=== PATIENT | male | born 1985 | race Caucasian/White ===

== ENCOUNTER 2018-10-14 01:20 | Emergency (ER) | payer SELFPAY ==
[~2018-10-14] VITALS: Ht 177.8 cm; Wt 86.2 kg
--- NOTE | 2018-10-14 01:20 | NUR ---
PT BIBA BLS. TAKEN TO BED 4. [place] [employer] AT BEDSIDE
[2018-10-14 01:23] VITALS: BP 186/153
[2018-10-14] MEDS ORDERED: ONDANSETRON 4 MG/2 ML VIAL IVP ONE (01:25)
[2018-10-14] MEDS ORDERED: NACL 0.9% 1,000 ML IV ONE ×2 (01:25→02:30)
--- NOTE | 2018-10-14 01:25 | NUR ---
PT BIBA C/O CHEST PAIN. PT WAS IN THE PROCESS OF BEING DETAINED BY [facility] WHEN HE HAD SUDDEN ONSET OF CHEST PAIN. PT PRESENTS TO THE ED, NON-VERBAL. PT POINTS TO CHEST WHEN ASKED WHERE HIS PAIN IS LOCATED, PT POINTS TO LEFT MEDIAL CHEST AREA. PT IS UNCOOPERATIVE. PT IS MOANING W/ FACIAL GRIMACE. PT IN GOWN, IN BED; BED IN LOWER LOCKED POSITION. ER AWARE OF PT STATUS. WILL CONTINUE TO MONITOR. PMH: CASEY RX: CASEY Addendum: 10/14/18 at 0208 by [email or web address] PT BIBA C/O CHEST PAIN. PT WAS IN THE PROCESS OF BEING DETAINED BY [facility] WHEN HE HAD SUDDEN ONSET OF CHEST PAIN. PT PRESENTS TO THE ED, NON-VERBAL. PT POINTS TO CHEST WHEN ASKED WHERE HIS PAIN IS LOCATED, PT POINTS TO LEFT MEDIAL CHEST AREA. PT IS UNCOOPERATIVE. PT IS MOANING W/ FACIAL GRIMACE. PT PLACED ON 2L NASAL CANNULA. 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 PT IN GOWN, IN BED; BED IN LOWER LOCKED POSITION. RONEN ALEXANDER AWARE OF PT STATUS. WILL CONTINUE TO MONITOR. PMH: CASEY RX: CASEY Addendum: 10/14/18 at 0211 by [email or web address] PT BIBA C/O CHEST PAIN. PT WAS IN THE PROCESS OF BEING DETAINED BY [facility] WHEN HE HAD SUDDEN ONSET OF CHEST PAIN. PT PRESENTS TO THE ED, NON-VERBAL. PT POINTS TO CHEST WHEN ASKED WHERE HIS PAIN IS LOCATED, PT POINTS TO LEFT MEDIAL CHEST AREA. PT IS UNCOOPERATIVE. PT IS MOANING W/ FACIAL GRIMACE. PT PLACED ON 2L NASAL CANNULA. PT PLACED ON BEDSIDE ASSOCIATE ARTISTIC DIRECTOR. SUCTION EQUIPMENT ON AT BEDSIDE. PT IN GOWN, IN BED; BED IN LOWER LOCKED POSITION. ER MD AWARE OF PT STATUS. WILL CONTINUE TO MONITOR. PMH: DENIES RX: DENIES
--- NOTE | 2018-10-14 01:30 | NUR ---
IV START: R AC 18G, FLUSHED WELL W/O RESISTANCE. NO REDNESS OR SWELLING NOTED TO SIGHT. TRANSPARENT DRESSING APPLIED. PT TOLERATED WELL.
--- NOTE | 2018-10-14 01:32 | NUR ---
FIRST EKG ATTEMPTED, PT RESISTED DID NOT COOPERATE WHEN ASKED TO LIE STILL. ORDERED ANOTHER ATTEMPT AFTER PT CALMED DOWN
[2018-10-14 01:36] LABS: BASOPHILS % (AUTO) 0.3 % (0.0-2.0); EOSINOPHILS # (AUTO) 0.2 K/uL (0-0.4); EOSINOPHILS % (AUTO) 1.1 % (0.0-4.0); HEMATOCRIT 44.7 % (36-52); HEMOGLOBIN 15.2 g/dL (12.0-18.0); LYMPHOCYTES # (AUTO) 4.2 K/uL (2.0-11.5); LYMPHOCYTES % (AUTO) 24.9 % (20.5-51.1); MEAN CORPUSCULAR HEMOGLOBIN 30 pg (27-31); MEAN CORPUSCULAR HGB CONC 34 g/dL (33-37); MEAN CORPUSCULAR VOLUME 88.9 fL (80-94); MONOCYTES # (AUTO) 1.6 K/uL (0.8-1.0); MONOCYTES % (AUTO) 9.4 % (1.7-9.3); NEUTROPHILS # (AUTO) 10.8 K/uL (1.8-7.7); NEUTROPHILS % (AUTO) 64.3 % (42.2-75.2); PLATELET COUNT (AUTO) 417 K/uL (140-450); RED BLOOD CELL COUNT(AUTO) 5.03 MIL/uL (4.20-6.10); RED CELL DISTRIBUTION WIDTH 13.9 % (11.6-13.7); WHITE BLOOD COUNT (AUTO) 16.8 K/uL (4.8-10.8)
--- NOTE | 2018-10-14 01:40 | NUR ---
#14 FR Urinary catheter inserted utilizing sterile technique. Immediate return of clear yellow urine noted. Catheter removed tip intact. Urine sample collected and sent to lab. Pt tolerated procedure well.
[2018-10-14 01:44] LABS: ANION GAP 10.7 (8-16); CARBON DIOXIDE 28.7 mmol/L (21-32); CHLORIDE 103 mmol/L (98-107); CREATININE 1.1 mg/dL (0.7-1.3); GFR ARICAN-AMERICAN 100 mL/min (>90); GLUCOSE 116 mg/dL (74-106); POTASSIUM 3.4 mmol/L (3.5-5.1); SODIUM SERUM 139 mmol/L (136-145); UREA NITROGEN, BLOOD 22 mg/dL (7-18)
[2018-10-14 01:50] LABS: ALBUMIN 3.9 g/dL (3.4-5.0); ASPARTATE AMINOTRANSFERASE 29 U/L (15-37); TOTAL BILIRUBIN 0.3 mg/dL (0.0-1.0)
[2018-10-14 01:56] LABS: BARBITURATE, URINE NEG. ng/ml (NEG <=200); BENZODIAZEPINE, URINE NEG. ng/mL (NEG <=200); CANNABINOID, URINE NEG. ng/mL (NEG <=50); COCAINE, URINE NEG. ng/mL (NEG <=300); OPIATE, URINE NEG. ng/mL (NEG <=2000); PHENCYCLIDINE SCREEN,URINE NEG. ng/mL (NEG <=25)
[2018-10-14 02:08] LABS: APPEARANCE,URINE CLEAR (CLEAR); BILIRUBIN,URINE NEGATIVE (NEGATIVE); BLOOD, URINE 1+ (NEGATIVE); COLOR,URINE YELLOW (YELLOW); LEUKOCYTE ESTERASE ,URINE NEGATIVE (NEGATIVE); NITRITE, URINE NEGATIVE (NEGATIVE); UGLUCOSE NEGATIVE (NEGATIVE)
[2018-10-14] MEDS ORDERED: DILTIAZEM 25 MG/5 ML VIAL IVP ONE (02:20)
[2018-10-14 02:22] LABS: RBC,URINE 0-5 /HPF (0-5); WBC,URINE 0-5 /HPF (0-5)
--- NOTE | 2018-10-14 02:38 | NUR ---
X-RAY AT BEDSIDE.
[2018-10-14] MEDS ORDERED: LORazepam 2 MG/ML VIAL IVP ONE (02:50)
--- NOTE | 2018-10-14 02:55 | NUR ---
EKG PERFORMED AT BEDSIDE
--- NOTE | 2018-10-14 03:48 | NUR ---
Patient discharged with v/s stable. IV d/c; tip intact, pressure applied, bleeding controlled, sign benign. Written and verbal after care instructions given and explained. Patient verbalized understanding. Patient left with police with in custody. All questions addressed prior to discharge. Advised to follow up with PMD.
[2018-10-14 04:03] VITALS: BP 134/62
== END 2018-10-14 03:48 ==
LOC: MED 01:20
DX: F15.129 Other stimulant abuse with intoxication, unspecified (principal); R00.0 Tachycardia, unspecified; E87.6 Hypokalemia
CPT/HCPCS: 36415; 71045; 80053; 80305; 81001; 84484; 85025; 93005; 96374; 96375; 99284; G0482; J2060; J2405; J3490; J7030; Q0092